=== PATIENT | female | born 1985 | race African-American/Black ===

== ENCOUNTER 2019-02-19 18:03 | Emergency (ER) | payer MEDICAID ==
[~2019-02-19] VITALS: Ht 167.6 cm; Wt 149.7 kg
--- NOTE | 2019-02-19 18:15 | NUR ---
ED Nurse Note: Patient walked into ED c/o bilateral leg pains, patient reports prolonged period for weeks. patient is alert awake x4 ambulatory, skin is warm to touch.
--- NOTE | 2019-02-19 18:47 | Diagnostic Imaging Report ---
EXAM: XR Chest, 1 View CLINICAL HISTORY: ABD PAIN TECHNIQUE: Frontal view of the chest. COMPARISON: none FINDINGS: Lungs: Unremarkable. No consolidation. Pleural space: Unremarkable. No pneumothorax. Heart: Upper normal heart size. Mediastinum: Unremarkable. Bones/joints: Unremarkable. Upper abdomen: No free air under the diaphragms. IMPRESSION: No acute cardiopulmonary process.
[2019-02-19 18:56] VITALS: BP 121/72
[2019-02-19 18:59] LABS: BASOPHILS % (AUTO) 1.1 % (0.0-2.0); BILIRUBIN, URINE NEGATIVE (NEGATIVE); COLOR,URINE PALE YELLOW; GLUCOSE, URINE (UA) NEGATIVE (NEGATIVE); HEMATOCRIT 37.6 % (37.0-47.0); HEMOGLOBIN 11.8 G/DL (12.0-16.0); KETONES,URINE 1+ (NEGATIVE); LEUKOCYTE ESTERASE ,URINE 2+ (NEGATIVE); LYMPHOCYTES % (AUTO) 36.4 % (20.0-45.0); MEAN CORPUSCULAR VOLUME 89 FL (80-99); MONOCYTES % (AUTO) 5.8 % (1.0-10.0); NEUTROPHILS % (AUTO) 55.7 % (45.0-75.0); NITRITE,URINE NEGATIVE (NEGATIVE); PH,URINE 6.5 (4.5-8.0); PLATELET COUNT 205 K/UL (150-450); PROTEIN,URINE 2+ (NEGATIVE); UROBILINOGEN,URINE 1 MG/DL (0.0-1.0); WHITE BLOOD COUNT 5.4 K/UL (4.8-10.8)
[2019-02-19 19:00] LABS: APPEARANCE,URINE SLIGHTLY CLOUDY
[2019-02-19 19:01] LABS: ANION GAP 7 mmol/L (5-15); BLOOD UREA NITROGEN 5 mg/dL (7-18); CARBON DIOXIDE 28 MMOL/L (21-32); CHLORIDE 107 MMOL/L (98-107); CREATININE 0.8 MG/DL (0.55-1.30); POTASSIUM 3.8 MMOL/L (3.5-5.1); SODIUM 142 MMOL/L (136-145)
[2019-02-19 19:05] LABS: INR 0.9 (0.9-1.1)
--- NOTE | 2019-02-19 19:05 | NUR ---
ED Nurse Note: Received Pt and report from day shift. Pt is AO x 4times, VSS, on room air no distress. No lab work needed this timing. ERMD is current at bedside. HCG result -
[2019-02-19 19:08] LABS: ALANINE AMINOTRANSFERASE 20 U/L (12-78); ALBUMIN 3.5 G/DL (3.4-5.0); ALBUMIN/GLOBULIN RATIO 1.1 (1.0-2.7); ALKALINE PHOSPHATASE 108 U/L (46-116); ASPARTATE AMINO TRANSFERASE 20 U/L (15-37); BILIRUBIN,TOTAL 0.5 MG/DL (0.2-1.0)
--- NOTE | 2019-02-19 19:30 | Emergency Room Report ---
History of Present Illness General Chief Complaint: General Complaint Source: Patient Present Illness HPI This patient states she has a history of sickle cell disease. She recently has had recurrent vaginal bleeding after getting the Depo-Provera shot. She states she is ongoing bleeding. She also states she believes she is having pain crisis with pain in her legs and back. She denies recent illness. She denies cough or congestion. She denies fever or chills. She has no other complaints. Allergies: Coded Allergies: ACETAMINOPHEN (Verified Allergy, Severe, 10/31/08) HYDROCODONE (Verified Allergy, Severe, 10/31/08) Patient History Past Medical History: see triage record, GERD, other - SCD, BUTCH Social History: Denies: smoking, alcohol use, drug use Last Menstrual Period: 01/14/19 Reviewed Nursing Documentation: PMH: Agreed; PSxH: Agreed Nursing Documentation-PMH Past Medical History: No History, Except For Review of Systems All Other Systems: negative except mentioned in HPI Physical Exam Vital Signs Date Time Temp Pulse Resp B/P (MAP) Pulse Ox O2 Delivery O2 Flow Rate FiO2 02/19/19 18:06 99.0 108 18 132/81 (98) 98 Room Air Sp02 EP Interpretation: reviewed, normal General Appearance: no apparent distress, alert, GCS 15, non-toxic Head: normocephalic, atraumatic Eyes: bilateral eye normal inspection, bilateral eye PERRL ENT: hearing grossly normal, normal pharynx, no angioedema, normal voice Neck: full range of motion, supple/symm/no masses Respiratory: chest non-tender, lungs clear, normal breath sounds, no respiratory distress, no retraction, no accessory muscle use, speaking full sentences Cardiovascular #1: regular rate, rhythm, no edema Gastrointestinal: normal bowel sounds, non tender, soft, non-distended, no guarding, no rebound Rectal: deferred Musculoskeletal: back normal, gait/station normal, normal range of motion, non- tender Neurologic: alert, oriented x3, responsive, motor strength/tone normal, sensory intact, speech normal Psychiatric: judgement/insight normal, memory normal, mood/affect normal, no suicidal/homicidal ideation Medical Decision Making Diagnostic Impression: Primary Impression: Chronic pain ER Course This patient has chronic pain. She states that she has sickle cell disease and she is heavily bleeding. However, the patient's laboratory work-up is normal. The patient is barely anemic with a hemoglobin of 11.8. There is no evidence of sickle cell crises at this time. The patient is instructed that she must follow-up with her primary care physician for any pain medications and that I will not be prescribing her any type of narcotic for her chronic pain. The patient was instructed to follow-up closely with her primary care physician. Laboratory Tests Test 02/19/19 18:35 White Blood Count 5.4 K/UL (4.8-10.8) Red Blood Count 4.20 M/UL (4.20-5.40) Hemoglobin 11.8 G/DL (12.0-16.0) L Hematocrit 37.6 % (37.0-47.0) Mean Corpuscular Volume 89 FL (80-99) Mean Corpuscular Hemoglobin 28.2 PG (27.0-31.0) Mean Corpuscular Hemoglobin Concent 31.5 G/DL (32.0-36.0) L Red Cell Distribution Width 16.0 % (11.6-14.8) H Platelet Count 205 K/UL (150-450) Mean Platelet Volume 7.6 FL (6.5-10.1) Neutrophils (%) (Auto) 55.7 % (45.0-75.0) Lymphocytes (%) (Auto) 36.4 % (20.0-45.0) Monocytes (%) (Auto) 5.8 % (1.0-10.0) Eosinophils (%) (Auto) 1.0 % (0.0-3.0) Basophils (%) (Auto) 1.1 % (0.0-2.0) Prothrombin Time 9.5 SEC (9.30-11.50) Prothrombin Time INR 0.9 (0.9-1.1) PTT 25 SEC (23-33) Urine Color Pale yellow Urine Appearance Slightly cloudy Urine pH 6.5 (4.5-8.0) Urine Specific Story 1.010 (1.005-1.035) Urine Protein 2+ (NEGATIVE) H Urine Glucose (UA) Negative (NEGATIVE) Urine Ketones 1+ (NEGATIVE) H Urine Blood 5+ (NEGATIVE) H Urine Nitrite Negative (NEGATIVE) Urine Bilirubin Negative (NEGATIVE) Urine Urobilinogen 1 MG/DL (0.0-1.0) H Urine Leukocyte Esterase 2+ (NEGATIVE) H Urine RBC 10-15 /HPF (0 - 2) H Urine WBC 5-10 /HPF (0 - 2) H Urine Squamous Epithelial Cells Few /LPF (NONE/OCC) Urine Bacteria Moderate /HPF (NONE) H Urine HCG, Qualitative Negative (NEGATIVE) Sodium Level 142 MMOL/L (136-145) Potassium Level 3.8 MMOL/L (3.5-5.1) Chloride Level 107 MMOL/L (98-107) Carbon Dioxide Level 28 MMOL/L (21-32) Anion Gap 7 mmol/L (5-15) Blood Urea Nitrogen 5 mg/dL (7-18) L Creatinine 0.8 MG/DL (0.55-1.30) Estimate Glomerular Filtration Rate > 60 mL/min (>60) Glucose Level 85 MG/DL (74-106) Calcium Level 9.0 MG/DL (8.5-10.1) Total Bilirubin 0.5 MG/DL (0.2-1.0) Aspartate Amino Transferase (AST) 20 U/L (15-37) Alanine Aminotransferase (ALT) 20 U/L (12-78) Alkaline Phosphatase 108 U/L (46-116) Troponin I 0.000 ng/mL (0.000-0.056) Total Protein 6.6 G/DL (6.4-8.2) Albumin 3.5 G/DL (3.4-5.0) Globulin 3.1 g/dL Albumin/Globulin Ratio 1.1 (1.0-2.7) Urine Opiates Screen Negative (NEGATIVE) Urine Barbiturates Screen Negative (NEGATIVE) Phencyclidine (PCP) Screen Negative (NEGATIVE) Urine Amphetamines Screen Negative (NEGATIVE) Urine Benzodiazepines Screen Positive (NEGATIVE) H Urine Cocaine Screen Negative (NEGATIVE) Urine Marijuana (THC) Screen Positive (NEGATIVE) H Chest X-Ray Diagnostic Results Chest X-Ray Diagnostic Results : Chest X-Ray Ordered: Yes # of Views/Limited/Complete: 1 View Indication: Other EP Interpretation: Yes Interpretation: no consolidation, no effusion, no pneumothorax, no acute cardiopulmonary disease Impression: No acute disease Electronically Signed by: Trinidad Breaux DO Last Vital Signs Date Time Temp Pulse Resp B/P (MAP) Pulse Ox O2 Delivery O2 Flow Rate FiO2 02/19/19 18:57 107 22 Room Air 02/19/19 18:56 99.0 121/72 100 Status: improved Disposition: HOME, SELF-CARE Condition: Improved Trinidad Breaux DO Feb 19, 2019 19:30
[2019-02-19 20:00] VITALS: BP 133/77
--- NOTE | 2019-02-19 20:01 | NUR ---
ER DISCHARGE NOTE: Patient is cleared to be discharged per ERMD, pt is aox4, on room air, with stable vital signs. pt was given dc and prescription instructions, pt was able to verbalize understanding, pt id band and iv site removed without complications. pt is able to ambulate with steady gait. pt took all belongings.
[2019-02-19 20:02] VITALS: BP 133/77
== END 2019-02-19 20:03 | disposition home or self-care (01) ==
LOC: EMR 18:25
DX: G89.29 Other chronic pain (principal); D57.1 Sickle-cell disease without crisis; N93.9 Abnormal uterine and vaginal bleeding, unspecified; G47.33 Obstructive sleep apnea (adult) (pediatric); Z88.6 Allergy status to analgesic agent; Z88.5 Allergy status to narcotic agent
CPT/HCPCS: 36415; 71045; 80053; 80307; 81003; 81025; 84484; 85025; 85610; 85730; 87086; 96360; 99284

== ENCOUNTER 2019-03-22 07:02 | Day surgery (SDC) | payer MEDICAID ==
[2019-03-22] VITALS (7 sets, daily range): BP systolic 101–138; BP diastolic 51–88
[~2019-03-22] VITALS: Ht 167.6 cm; Wt 156.5 kg
[2019-03-22] MEDS ORDERED: METOPROLOL SUCC50 MG ORAL (07:51)
[2019-03-22] MEDS ORDERED: TIZANIDINE HCL4 MG ORAL (07:51)
[2019-03-22] MEDS ORDERED: SEROQUEL50 MG ORAL (07:51)
[2019-03-22] MEDS ORDERED: [UNRECOGNIZED DRUG - OTHER] PO (07:51)
[2019-03-22] MEDS ORDERED: DOXEPIN HCL150 MG PO (07:51)
[2019-03-22] MEDS ORDERED: ALPRAZOLAM1 MG ORAL (07:51)
[2019-03-22] MEDS ORDERED: HYDROXYUREA500 M1 PO (07:53)
[2019-03-22] MEDS ORDERED: VITAMIN D250000 UNI1 ORAL (07:54)
[2019-03-22] MEDS ORDERED: LR 1000ml 1,000 ML IVLG SCH (09:19)
--- NOTE | 2019-03-22 09:23 | Anethesia Preoperative Eval ---
Anesthesia Pre-op PMH/ROS General Date of Evaluation: Mar 22, 2019 Time of Evaluation: 10:07 Anesthesiologist: Estrellita ASA Score: ASA 3 Mallampati Score Class I : Soft palate, uvula, fauces, pillars visible Class II: Soft palate, uvula, fauces visible Class III: Soft palate, base of uvula visible Class IV: Only hard plate visible Mallampati Classification: Class III Surgeon: Gus Diagnosis: Abd Pain Surgical Procedure: EGD, Colonoscopy Anesthesia History: none Family History: no anesthesia problems Allergies: Coded Allergies: ACETAMINOPHEN (Verified Allergy, Severe, HIVED, 03/22/19) HYDROCODONE (Verified Allergy, Severe, HIVES, 03/22/19) PROMETHAZINE (Verified Allergy, Severe, 03/22/19) WEAKNESS, BLURRINESS Medications: see eMAR Patient NPO?: Yes Past Medical History Pulmonary: Reports: BUTCH - CPAP Gastrointestinal/Genitourinary: Reports: GERD Neurologic/Psychiatric: Reports: depression/anxiety Hematology/Immune: Reports: anemia Other: obesity - Massive Morbid BMI 58 PSxH Narrative: Cholecystectomy Anesthesia Pre-op Phys. Exam Physician Exam Last Vital Signs Date Time Temp Pulse Resp B/P (MAP) Pulse Ox O2 Delivery O2 Flow Rate FiO2 03/22/19 07:56 Room Air 03/22/19 07:55 98.8 97 20 101/51 98 Constitutional: NAD Neurologic: CN 2-12 intact Cardiovascular: RRR Respiratory: CTA Gastrointestinal: S/NT/ND Airway Exam Mallampati Score: Class III MO: limited ROM: limited Teeth: intact Anesthesia Pre-op A/P Labs Urine Test Test 03/22/19 07:15 Urine HCG, Qualitative Negative (NEGATIVE) Risk Assessment & Plan Assessment: ASA 3 Plan: GA Status Change Before Surgery: No Matheus Haro MD Mar 22, 2019 09:23
[2019-03-22] MEDS ORDERED: fentaNYL 100 mcg/2 mL IV PRN (09:30)
[2019-03-22] MEDS ORDERED: Meperidine 50mg/ml Inj(FOR RIGORS ONLY) IVP PRN (09:30)
[2019-03-22] MEDS ORDERED: LORazepam Inj 2mg/ml 1ml IV PRN (09:30)
[2019-03-22] MEDS ORDERED: Midazolam 2mg/2ml Inj IVP PRN (09:30)
[2019-03-22] MEDS ORDERED: Labetalol 5mg/ml 20ml vial IV PRN (09:30)
[2019-03-22] MEDS ORDERED: Metoclopramide 10mg/2ml Inj IVP PRN (09:30)
[2019-03-22] MEDS ORDERED: Ketorolac 30mg Inj IV PRN ×2 (09:30)
[2019-03-22] MEDS ORDERED: DiphenhydrAMINE 50mg/ml Inj IVP PRN (09:30)
[2019-03-22] MEDS ORDERED: Atropine Sulfate 0.4mg/ml inj IVP PRN (09:30)
--- NOTE | 2019-03-22 09:56 | Short Stay Surgery H&P ---
History of Present Illness History of Present Illness Chief Complaint colitis HPI Chula Smith is a 33 year old female who was admitted on for Colitis , Rectal Bleed Patient History Allergies: Coded Allergies: ACETAMINOPHEN (Verified Allergy, Severe, HIVED, 03/22/19) HYDROCODONE (Verified Allergy, Severe, HIVES, 03/22/19) PROMETHAZINE (Verified Allergy, Severe, 03/22/19) WEAKNESS, BLURRINESS PAST MEDICAL HISTORY: (1) GERD (gastroesophageal reflux disease) (2) Sleep apnea Medication History Scheduled Alprazolam* (Xanax*), 1 MG ORAL BID, (Reported) Doxepin Hcl (Doxepin Hcl), 150 MG PO BEDTIME, (Reported) Ergocalciferol (Vitamin D2)* (Vitamin D*), 50,000 UNIT ORAL ONCE A WEEK, ( Reported) Hydroxyurea (Hydroxyurea), 500 MG PO DAILY, (Reported) Metoprolol Succinate* (Metoprolol Succinate*), 50 MG ORAL BEDTIME, (Reported) Quetiapine Fumarate (Seroquel), 100 MG ORAL BEDTIME, (Reported) Tizanidine Hcl* (Zanaflex*), 4 MG ORAL NEEDED, (Reported) Review of Systems Cardiovascular: Reports: no symptoms Respiratory: Reports: no symptoms Skeletal: Reports: no symptoms Gastrointestinal: Reports: no symptoms Genitourinary: Reports: no symptoms Neurologic: Reports: no symptoms Endocrine: Reports: no symptoms Physical Exam Vital Signs Last Vital Signs Date Time Temp Pulse Resp B/P (MAP) Pulse Ox O2 Delivery O2 Flow Rate FiO2 03/22/19 07:56 Room Air 03/22/19 07:55 98.8 97 20 101/51 98 Labs Laboratory Tests Test 03/22/19 07:15 Urine HCG, Qualitative Negative (NEGATIVE) Skin: normal HENT: normal Heart: normal Lungs: normal Abdomen: normal Extremities: normal Plan Plan of Care colonoscopy Attestation Are the patient's medical conditions optimized for surgery? Attestation Response: yes Tapan Weber MD Mar 22, 2019 09:56
--- NOTE | 2019-03-22 09:57 | Pre-Procedure Note/Attestation ---
Pre-Procedure Note/Attestation Complete Prior to Procedure Planned Procedure: not applicable Procedure Narrative: colonoscopy Indications for Procedure Pre-Operative Diagnosis: colitis Attestation I attest that I discussed the nature of the procedure; its benefits; risks and complications; and alternatives (and the risks and benefits of such alternatives ), prior to the procedure, with the patient (or the patient's legal junior sales representative). I attest that, if there was a reasonable possibility of needing a blood transfusion, the patient (or the patient's legal junior sales representative) was given the [facility] standardized written summary, pursuant to the Adalid Altaf Blood Safety Act ([place] Health and Safety Code # 1645, as amended). I attest that I re-evaluated the patient just prior to the surgery and that there has been no change in the patient's H&P, except as documented below: Tapan Weber MD Mar 22, 2019 09:57
[2019-03-22] MEDS ORDERED: Propofol 200mg/20ml IV ONE (10:00)
[2019-03-22] MEDS ORDERED: LR 1000ml ONE (10:00)
[2019-03-22] MEDS ORDERED: Lidocaine 1% MPF 10mg/ml 5ml ONE (10:00)
--- NOTE | 2019-03-22 10:23 | Immediate Post-Op Evaluation ---
Immediate Post-Op Evalulation Immediate Post-Op Evalulation Procedure: EGD/Colonoscopy Date of Evaluation: Mar 22, 2019 Time of Evaluation: 11:23 IV Fluids: 300 LR Blood Products: 0 Estimated Blood Loss: 3 Urinary Output: 0 Blood Pressure Systolic: 129 Blood Pressure Diastolic: 88 Pulse Rate: 105 Respiratory Rate: 16 O2 Sat by Pulse Oximetry: 100 Temperature (Fahrenheit): 97.6 Pain Score (1-10): 2 Nausea: No Vomiting: No Complications 0 Patient Status: awake, reacts, patent, none Hydration Status: adequate Matheus Haro MD Mar 22, 2019 10:23
--- NOTE | 2019-03-22 10:24 | 48 Hour Post Anesthesia Eval ---
Post Anesthesia Evaluation Procedure: EGD/Colonoscopy Date of Evaluation: Mar 22, 2019 Time of Evaluation: 13:34 Blood Pressure Systolic: 138 0: 84 Pulse Rate: 98 Respiratory Rate: 18 Temperature (Fahrenheit): 98.2 O2 Sat by Pulse Oximetry: 99 Airway: patent Nausea: No Vomiting: No Pain Intensity: 2 Hydration Status: adequate Cardiopulmonary Status: Stable Mental Status/LOC: patient returned to baseline Follow-up Care/Observations: 0 Post-Anesthesia Complications: 0 Follow-up care needed: ready to discharge Matheus Haro MD Mar 22, 2019 10:24
--- NOTE | 2019-03-22 10:56 | Endoscopy Procedure Note ---
Endoscopy Procedure Note General Indication for Procedure: rectal bleed, GERD, abd pain Procedures Performed: EGD, colonoscopy Operative Findings/Diagnosis: gastritis, hemorrhoids Specimen: yes Pt Tolerated Procedure Well: Yes Estimated Blood Loss: none Anesthesia Anesthesiologist: bere Anesthesia: MAC Inserted Devices Implant(s) used?: No Quality Quality of Bowel Preparation: Good Did scope reach the cecum?: Yes Was there any complications?: No GI Core Measures 50 yrs or older w/o bx or poly: No 10yrs. F/U recommended: Yes If not recommended, why?: Above average risk 18 years or older w/prev. colo: No Tapan Weber MD Mar 22, 2019 10:56
--- NOTE | 2019-03-22 17:30 | Procedure Note ---
DATE OF PROCEDURE: 03/22/2019 SURGEON: Tapan Weber M.D. PROCEDURE: Upper endoscopy with biopsy and colonoscopy. ANESTHESIA: Per Dr. Matheus Haro. INSTRUMENT: Olympus adult flexible upper endoscope and colonoscope. INDICATION: Rectal bleeding, abdominal pain, and chronic GERD. REASON FOR PROCEDURE: The procedure, risks, benefits, and possible consequences, including hemorrhage, aspiration, perforation and infection, and alternative treatments, were explained to the patient/legal guardian by Dr. Tapan Weber and the patient/legal guardian understood and accepted these risks. PROCEDURE IN DETAIL: After informed consent was obtained and the patient was adequately sedated, Olympus upper endoscope was advanced from mouth into the second portion of the duodenum and retroflexion was performed in the stomach. The patient has small nodule in the antrum and in the prepyloric region with central ulceration. This nodule was measured roughly about 5 mm was biopsied. The patient had evidence of diffuse gastritis. Random biopsy from antrum and body was obtained to rule out H. pylori infection. At this time, the upper endoscope was retrieved and the patient was turned over for colonoscopy. First rectal exam was performed, which was positive for internal hemorrhoids. Then, the scope was advanced from the rectum into the cecum documented by appendiceal orifice, ileocecal valve, and right upper quadrant palpation. Quality of prep overall was good. The patient had evidence of normal colonoscopy examination. No obvious mass, polyp, or any pathology was seen. Retroflexion of rectum showed evidence of internal hemorrhoids. SUMMARY OF FINDINGS: 1. Gastric nodule in the antrum status post biopsy. 2. Gastritis, status post biopsy. 3. Internal hemorrhoids. RECOMMENDATIONS: Follow up pathology and treat accordingly. I want to thank, Dr. Davida Burnette, for this kind referral. Tapan Weber M.D. DR: KARLOS JOB#: [id number] CC: Davida Burnette M.D.; Fax#: [phone]
== END 2019-03-22 12:20 | disposition home or self-care (01) ==
LOC: GAS 07:02
DX: K62.5 Hemorrhage of anus and rectum (principal); R10.9 Unspecified abdominal pain; K21.9 Gastro-esophageal reflux disease without esophagitis; K29.50 Unspecified chronic gastritis without bleeding; K64.8 Other hemorrhoids; G47.30 Sleep apnea, unspecified; Z79.899 Other long term (current) drug therapy
CPT/HCPCS: 43239; 45378; 81025; J2250; J2704; Z7512; 94003; 94150